=== PATIENT | female | born 1930 | race Caucasian/White ===

== ENCOUNTER → 2016-11-01 | Outpatient (CLI) | payer OTHER ==
[~2016-11-01] MED LIST: ACET65TA OR; AMLO10TA OR; ASPI81TA83 PO; ATEN25TA; AVISTA; B 6; CALCTAB93; CIPR500T19; EVISTA PO; FLAG500T; GLUCOSAMINE; LEVO25TABR PO; OMEGA 3; PEPC20TA2 OR; PERC5TAB8 OR; PROP10TAB; SPIRONLACTONE PO; VIT B-12; VITA50TA12; VITAMIN C; VITAMIN D; VITAMIN E
--- NOTE | 2016-11-01 13:22 | REP ---
BILATERAL MAMMOGRAM: COMPARISON: 10/20/2015 as well as other prior exams. Negative ACR category 1 mammogram. There has been no change in appearance of the mammogram from prior studies. There is a mild amount of residual fibroglandular tissue remaining which is fairly symmetric. There has been no interval development of dominant masses, areas of structural distortion or cluster of microcalcifications typical of malignancy. IMPRESSION: 1. Benign mammogram. Currently no mammographic evidence of malignancy. Routine followup is recommended in 1 year. 2. ACR category 1. BI-RADS/ACR category 1 mammogram. Negative. Routine annual screening mammography (for women over age 40). This mammogram was interpreted with the aid of an FDA-approved computer-aided detection system. The patient states she/he had a clinical breast exam in October 2016. Patient letter M1. Signed by Fabian Grant MD 11/01/2016 05:03 P
== END ==
LOC: M RAD 11:19
PROVIDERS: ATTEND Obstetrics & Gynecology
DX: Z12.31 Encounter for screening mammogram for malignant neoplasm of breast (principal)

== ENCOUNTER → 2017-11-08 | Outpatient (CLI) | payer OTHER | LOC: M RAD 10:34 | DX: Z12.31 Encounter for screening mammogram for malignant neoplasm of breast (principal) | CPT/HCPCS: 77067 ==

== ENCOUNTER → 2018-11-28 | Outpatient (CLI) | payer MEDICARE ==
--- NOTE | 2018-11-28 11:08 | REPMRS ---
Patient History The patient states she had a clinical breast exam in November 2018. Taking unspecified hormones for 30 years. 3D TOMOSYNTHESIS WAS PERFORMED. Digital Mammo Screening Bilat: November 28, 2018 - Exam #: [id number] Bilateral CC and MLO view(s) were taken. Technologist: Debi Laws, Technologist Prior study comparison: November 08, 2017, bilateral digital mammo screening bilat performed at [facility]. November 01, 2016, bilateral digital mammo screening bilat performed at [facility]. FINDINGS: There are scattered fibroglandular densities. There has been no change in the appearance of the mammogram from the prior studies. There is a mild amount of residual fibroglandular tissue which is fairly symmetric. There is no interval development of dominant mass, architectural distortion, or clustered microcalcification suggestive of malignancy. Assessment: BI-RADS/ACR category 1 mammogram. Negative Mammogram. Recommendation Routine screening mammogram in 1 year (for women over age 40). This mammogram was interpreted with the aid of an FDA-approved computer-aided dectection system. Electronically Signed By: Fabian Grant MD 11/28/18 [id number]
== END ==
LOC: M RAD 10:07
PROVIDERS: ATTEND Obstetrics & Gynecology
DX: Z12.31 Encounter for screening mammogram for malignant neoplasm of breast (principal)